=== PATIENT | female | born 1955 | race Caucasian/White ===

== ENCOUNTER 2016-12-22 08:56 | Day surgery (SDC) | payer MEDICAID ==
[~2016-12-22 08:56] MED LIST: CARAFATE1 G/10 ML PO; PEPCID20 MG PO; PROZAC40 MG PO; VENTOLIN HFA18 GM INH
[2016-12-22] MEDS ORDERED: COREG 3.1253.125 MG PO (10:38)
[2016-12-22] MEDS ORDERED: LIPITOR40 MG PO (10:40)
[2016-12-22] MEDS ORDERED: VALIUM5 MG PO (10:40)
[2016-12-22] MEDS ORDERED: ULTRAM50 MG PO (10:40)
[2016-12-22] MEDS ORDERED: BAYER CHEWABLE81 MG PO (10:41)
[2016-12-22] MEDS ORDERED: BRILINTA90 MG PO (10:41)
[2016-12-22 10:59] VITALS: BP 118/74; BMI 27.5
[2016-12-22 11:16] LABS: BASOPHILS 0.1 % (0-2); EOSINOPHILS 1.9 % (0-7); HEMATOCRIT 44.1 % (36.0-48.0); HEMOGLOBIN 14.5 g/dL (12-16); IMMATURE GRANULOCYTES 0.1 % (0-5); LYMPHOCYTES 27.3 % (15-50); MCHC 32.9 g/dL (31.0-37.0); MCV 97.4 fL (80.0-100.0); MEAN PLATELET VOLUME 10.9 fL (7.4-10.4); MONOCYTES 5.8 % (2-11); NEUTROPHILS 64.8 % (40-80); PLATELET COUNT 234 10x3/uL (130-400); RBC 4.53 10x6/uL (4.00-5.40); RDW 13.3 % (11.5-14.5); WBC 6.9 10x3/uL (4.8-10.8)
[2016-12-22 11:33] LABS: CALC OSMOLALITY 280 mosm/kg (275-300); CALCIUM 9.4 mg/dL (8.5-10.1); CARBON DIOXIDE 27.2 mmol/L (21.0-32.0); CHLORIDE - SERUM 106 mmol/L (98-107); CREATININE - SERUM 0.8 mg/dL (0.6-1.3); GLUCOSE 92 mg/dL (74-106); POTASSIUM - SERUM 3.8 mmol/L (3.5-5.1); SODIUM 142 mmol/L (136-145); UREA NITROGEN 8 mg/dL (7-18); eGFR NON AFRICAN AMERICAN 78 mL/min (90-120)
--- NOTE | 2016-12-22 12:51 | NUR ---
[id number] COMPLAINS OF SEVER ABDOMINAL PAIN, ABDOMEN RIGID TO PALPATION. 1233 TO 1246-SCOPE REINTRODUCED BY DR. NIX UNDER TIVA TO CECUM TO DECOMPRESS COLON.
--- NOTE | 2016-12-22 14:25 | NUR ---
1410 DISCHARGE INSTRUCTIONS COMPLETE. PT HAS NO QUESTIONS OR CONCERNS AT THIS TIME. PRESCRIPTION FOR FLAGYL GIVEN. ESCORTED OUT BY JAMES LUZ.
--- NOTE | 2016-12-23 09:09 | OP ---
PATIENT NAME: PORFIRIO LAROSE MEDICAL RECORD: [id number] :57 LOCATION:D[facility] ADMISSION DATE: SURGEON: BOB DIXON DO DATE OF OPERATION: 12/22/2016 PROCEDURE: Colonoscopy with biopsy and polypectomy. INDICATION FOR PROCEDURE: History of colon polyps. Her last colonoscopy was in 2013 and was an inadequate prep. SCOPE: Olympus video pediatric colonoscope. MEDICATIONS: Propofol administered per anesthesia. WITHDRAWAL TIME: 18 minutes. ESTIMATED BLOOD LOSS: Minimal. COMPLICATIONS: None. FINDINGS: Informed consent was given. The patient was made comfortable with the above medications. After reaching an adequate level of sedation by slow IV push, the patient was placed on her left side. A digital rectal examination was performed and was normal. The endoscope was then advanced under direct visualization through the rectum to the terminal ileum. The scope was slowly withdrawn and the mucosa was carefully examined. There were 2 polyps visualized on today's examination. The first was a flat lesion located in the cecum. It measured approximately 9 mm in diameter. For safety reasons, it was lifted with normal saline. An endoscopic mucosal resection was attempted, but the polyp was so flat that the snare could not grasp the edges. For this reason, biopsy forceps were used. Cold forceps biopsies were taken and then the polyp was removed using hot forceps biopsy technique and the site was cauterized. The second polyp was located in the transverse colon. It measured approximately 8 mm in diameter. It was removed using hot forceps in piecemeal fashion. There was evidence of severe diverticulosis involving descending and sigmoid colon. There was no evidence of diverticulitis. Retroflexion was performed in the rectum with a normal-appearing rectal wall. The endoscope was then withdrawn from the patient. The patient tolerated the procedure well and there were no complications. IMPRESSIONS: 1. Two polyps as described above, removed using combination of cold and hot forceps. 2. Severe diverticulosis of descending and sigmoid colon. PLAN AND RECOMMENDATIONS: 1. Discharge home when recovery parameters are met. 2. Followup biopsy specimen results. 3. Recall colonoscopy will be dependent on results of biopsy specimens. I anticipate this being 6 months to 1 year to reevaluate the cecal polyp site. This may change after biopsies are reviewed. 4. High-fiber diet. 5. Continue current medication. OPERATIVE REPORT [id number] PORFIRIO LAROSE TRANSINT:[id number] Voice Confirmation ID: [id number] DOCUMENT ID: [id number] BOB DIXON DO at 0909 CC: [id number] DICTATION DATE: 12/22/16 1219 SENIOR CATEGORY MANAGER: 12/22/16 1253 [facility] 12/22/16 [place] [id number] [place] [id number]
--- NOTE | 2016-12-23 09:09 | OP ---
PATIENT NAME: PORFIRIO LAROSE MEDICAL RECORD: [id number] :57 LOCATION:D[facility] ADMISSION DATE: SURGEON: BOB DIXON DO DATE OF OPERATION: 12/22/2016 ADDENDUM Please note that after the report was dictated, the patient began to express discomfort and pain while waking up from sedation. Her abdomen was palpated and it was somewhat rigid. A decompression was attempted with a digital rectal exam, but was not satisfactory. For this reason, further sedation was provided and the endoscope was placed back through the rectum and advanced all the way to the cecum again for decompression. The previous polypectomy sites were examined and looks normal status post polypectomy. There were no preparations. The bowel retained air well. Decompression was performed as the endoscope was then withdrawn from the patient again. The scope was completely withdrawn from the patient and the abdomen was again palpated and was decompressed satisfactorily. TRANSINT:[id number] Voice Confirmation ID: [id number] DOCUMENT ID: [id number] BOB DIXON DO at 0909 CC: [id number] DICTATION DATE: 12/22/16 1305 FIRE PREVENTION ENGINEER: 12/22/16 1321 [facility] 12/22/16 [place] [id number] [place] [address]
== END 2016-12-22 14:10 | disposition home or self-care (01) ==
LOC: D.OPS 08:56
PROVIDERS: Internal Medicine Gastroenterology
DX: K63.5 Polyp of colon (principal); K57.30 Diverticulosis of large intestine without perforation or abscess without bleeding; J44.9 Chronic obstructive pulmonary disease, unspecified; I25.10 Atherosclerotic heart disease of native coronary artery without angina pectoris; K21.9 Gastro-esophageal reflux disease without esophagitis; Z95.5 Presence of coronary angioplasty implant and graft; Z01.812 Encounter for preprocedural laboratory examination

== ENCOUNTER 2016-12-29 08:38 | Day surgery (SDC) | payer MEDICAID ==
[2016-12-22 10:50] VITALS: BP 118/74; BMI 27.5
[~2016-12-29 08:38] MED LIST changes: +BAYER CHEWABLE81 MG PO; +BRILINTA90 MG PO; +COREG 3.1253.125 MG PO; +LIPITOR40 MG PO; +ULTRAM50 MG PO; +VALIUM5 MG PO
[2016-12-29] MEDS ORDERED: FLAGYL250 MG PO (09:35)
[2016-12-29 09:37] VITALS: BP 108/69; BMI 27.5
[2016-12-29 09:41] LABS: HEMATOCRIT 41.4 % (36.0-48.0); HEMOGLOBIN 13.6 g/dL (12-16); MCH 32.4 pg (26.0-34.0); MCHC 32.9 g/dL (31.0-37.0); MCV 98.6 fL (80.0-100.0); MEAN PLATELET VOLUME 10.7 fL (7.4-10.4); RBC 4.2 10x6/uL (4.00-5.40); RDW 13.2 % (11.5-14.5); WBC 5.3 10x3/uL (4.8-10.8)
--- NOTE | 2016-12-29 12:29 | NUR ---
1125-RECD FROM GI LAB. DR DIXON HERE TO REPORT FINDINGS. 1135-FULL LIQUIDS SERVED. 1155-IV D/C 1205-DISCHARGE INSTRUCTIONS REVIEWED. 1210-UP TO BATHROOM, VOIDED AND DRESSED. 1220-D/C HOME VIA WHEELCHAIR.
--- NOTE | 2017-01-15 07:24 | OP ---
PATIENT NAME: PORFIRIO LAROSE MEDICAL RECORD: [id number] :57 [facility] DATE: SURGEON: BOB DIXON DO DATE OF OPERATION: 12/29/2016 PROCEDURE: EGD with biopsies. INDICATION FOR PROCEDURE: Dysphagia, heartburn, and epigastric abdominal pain. SCOPE: Olympus video gastroscope. MEDICATIONS: Propofol 150 mg IV per anesthesia. ESTIMATED BLOOD LOSS: Minimal. COMPLICATIONS: None. FINDINGS: Informed consent was given. The patient was made comfortable with the above medication. After reaching an adequate level of sedation by slow IV push, the patient was placed on her left side. The endoscope was then advanced under direct visualization through the mouth to the second portion of the duodenum. Just distal to the cricopharyngeus in the proximal third of the esophagus, there were 2 patches of heterotopic gastric mucosa. There were no nodules or abnormalities within these patches. The middle third of the esophagus was normal. In the distal third and GE junction, there was evidence of reflux esophagitis (LA class C). There was also possible Orozco mucosa. Biopsies were taken with cold forceps to submit for histology to rule out Orozco. The endoscope was advanced beyond the GE junction into the stomach and retroflexed to view the cardia, where a small sliding hiatal hernia was present. The mucosa of the stomach appeared normal throughout its entirety. Random biopsies were taken to submit for histology and to rule out H. pylori. There was a single subepithelial lesion in the antrum of the stomach which measured approximately 1 cm in diameter. Multiple tunneled biopsies were taken with cold forceps successfully to try to establish a diagnosis of this nodule. The endoscope was then advanced beyond the pylorus into the duodenum where there was some erythema and granularity consistent with duodenitis. Second portion of the duodenum appeared normal. The endoscope was withdrawn from the patient. The patient tolerated the procedure well and there were no complications. IMPRESSION: 1. 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 2. 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 3. Small sliding hiatal hernia. 4. Antral subepithelial lesion, biopsies pending. 5. Duodenitis. PLAN AND RECOMMENDATIONS: 1. Discharge home when recovery parameters are met. 2. Follow up biopsy specimen results. 3. GERD diet and reflux precautions. 4. Protonix 40 mg daily in the a.m. times 60 days. 5. Okay to discontinue famotidine while taking Protonix. 6. Notify the clinic if symptoms worsen or fail to improve. OPERATIVE REPORT [id number] PORFIRIO LAROSE 7. Follow up in GI clinic in 4-6 weeks. TRANSINT:[id number] Voice Confirmation ID: [id number] DOCUMENT ID: [id number] BOB DIXON DO at 0724 CC: [id number] DICTATION DATE: 12/29/16 1111 SPECIMEN ACCESSIONER: 12/29/16 1233 [facility] 12/29/16 [place] [id number] [place] [address]
== END 2016-12-29 12:20 | disposition home or self-care (01) ==
LOC: D.OPS 08:38
PROVIDERS: Anesthesiology
DX: R13.10 Dysphagia, unspecified (principal); R10.13 Epigastric pain; K21.0 Gastro-esophageal reflux disease with esophagitis; K44.9 Diaphragmatic hernia without obstruction or gangrene; K29.80 Duodenitis without bleeding; Z01.812 Encounter for preprocedural laboratory examination; J44.9 Chronic obstructive pulmonary disease, unspecified; Z87.891 Personal history of nicotine dependence

== ENCOUNTER 2017-08-10 10:52 | Day surgery (SDC) | payer MEDICAID ==
[~2017-08-10] VITALS: Ht 152.4 cm; Wt 68.2 kg
--- NOTE | ~2017-08-10 | OP ---
PATIENT NAME: PORFIRIO LAROSE MEDICAL RECORD: [id number] :57 LOCATION:D.OPS ADMISSION DATE: SURGEON: BOB DIXON DO DATE OF OPERATION: 08/10/2017 PROCEDURE: Colonoscopy with polypectomy. INDICATION FOR PROCEDURE: History of colon polyps and diverticulosis of the colon. SCOPE: [email or web address] video pediatric colonoscope. MEDICATIONS: Propofol 430 mg IV per anesthesia. WITHDRAWAL TIME: 17 minutes. ESTIMATED BLOOD LOSS: Minimal. COMPLICATIONS: None. FINDINGS: Informed consent was given. The patient was made comfortable with the above medication. After reaching an adequate level of sedation by slow IV push, the patient was placed on her left side. A digital rectal examination was performed and was normal. The endoscope was then advanced under direct visualization through the rectum to the cecum with visualization of the appendiceal orifice and the ileocecal valve. The endoscope was slowly withdrawn and the mucosa was carefully examined. The prep quality was good. There were 4 polyps visualized on today's examination. All were benign appearing and sessile and ranged in size from 3-6 mm in diameter. One was located in the transverse colon, two were located in the descending colon, and one was located in the sigmoid colon. All were removed with hot forceps and completely retrieved. There was evidence of moderate diverticulosis involving descending and sigmoid colon. There was no evidence of diverticulitis. Retroflexion was performed in the rectum with a normal-appearing rectal wall. The endoscope was then withdrawn from the patient. The patient tolerated the procedure well and there were no complications. IMPRESSION: 1. Moderate diverticulosis of descending and sigmoid colon. 2. Four polyps as described above, removed using hot forceps. PLAN AND RECOMMENDATIONS: 1. Discharge home when recovery parameters are met. 2. Followup biopsy specimen results. 3. High-fiber diet. 4. Continue current medications. 5. Recall colonoscopy in 3 years for surveillance of personal history of polyps. TRANSINT:[id number] Voice Confirmation ID: [id number] DOCUMENT ID: [id number] OPERATIVE REPORT [id number] PORFIRIO LAROSE BOB DIXON DO at 1212 CC: [id number] DICTATION DATE: 08/10/17 1437 BOTTLE GAUGER: 08/10/17 1846 [facility] 08/10/17 [facility] [address] [place] [address]
[~2017-08-10 10:52] MED LIST changes: +FLAGYL250 MG PO
[2017-08-10 11:25] LABS: BASOPHILS 0.5 % (0-2); EOSINOPHILS 2.9 % (0-7); HEMATOCRIT 43.1 % (36.0-48.0); HEMOGLOBIN 14.7 g/dL (12-16); IMMATURE GRANULOCYTES 0.3 % (0-5); LYMPHOCYTES 35.6 % (15-50); MCH 32.3 pg (26.0-34.0); MCHC 34.1 g/dL (31.0-37.0); MCV 94.7 fL (80.0-100.0); MONOCYTES 6.9 % (2-11); NEUTROPHILS 53.8 % (40-80); RBC 4.55 10x6/uL (4.00-5.40); RDW 12.6 % (11.5-14.5); WBC 5.9 10x3/uL (4.8-10.8)
[2017-08-10 11:29] LABS: PLATELET COUNT 189 10x3/uL (130-400)
[2017-08-10 11:38] LABS: CALC OSMOLALITY 276 mosm/kg (275-300); CALCIUM 9.1 mg/dL (8.5-10.1); CARBON DIOXIDE 20.5 mmol/L (21.0-32.0); CHLORIDE - SERUM 105 mmol/L (98-107); CREATININE - SERUM 0.8 mg/dL (0.6-1.3); GLUCOSE 102 mg/dL (74-106); POTASSIUM - SERUM 4.3 mmol/L (3.5-5.1); SODIUM 140 mmol/L (136-145); UREA NITROGEN 8 mg/dL (7-18); eGFR NON AFRICAN AMERICAN 77 mL/min (90-120)
[2017-08-10] MEDS ORDERED: NEURONTIN 300300 MG PO (13:19)
[2017-08-10] MEDS ORDERED: SPIRIVA18 MCG INH (13:19)
[2017-08-10 13:25] VITALS: Ht 152.4 cm; Wt 68.2 kg
== END 2017-08-10 17:13 | disposition home or self-care (01) ==
LOC: D.OPS 10:52
PROVIDERS: Anesthesiology
DX: D12.4 Benign neoplasm of descending colon (principal); D12.3 Benign neoplasm of transverse colon; K63.5 Polyp of colon; K57.30 Diverticulosis of large intestine without perforation or abscess without bleeding; Z86.010 Personal history of colon polyps; Z01.812 Encounter for preprocedural laboratory examination

== ENCOUNTER 2018-07-07 09:00 | Day surgery (SDC) | payer MEDICAID ==
[~2018-07-07] VITALS: Ht 152.4 cm; Wt 67.1 kg
[~2018-07-07 09:00] MED LIST changes: +NEURONTIN 300300 MG PO; +SPIRIVA18 MCG INH
[2018-07-07 09:18] LABS: BASOPHILS 0.4 % (0-2); EOSINOPHILS 4.1 % (0-7); HEMATOCRIT 44.5 % (36.0-48.0); HEMOGLOBIN 14.6 g/dL (12-16); IMMATURE GRANULOCYTES 0.2 % (0-5); LYMPHOCYTES 33.7 % (15-50); MCH 31.9 pg (26.0-34.0); MCHC 32.8 g/dL (31.0-37.0); MCV 97.2 fL (80.0-100.0); MEAN PLATELET VOLUME 10.3 fL (7.4-10.4); MONOCYTES 6.2 % (2-11); NEUTROPHILS 55.4 % (40-80); PLATELET COUNT 206 10x3/uL (130-400); RBC 4.58 10x6/uL (4.00-5.40); RDW 13.9 % (11.5-14.5); WBC 5.6 10x3/uL (4.8-10.8)
[2018-07-07 09:36] LABS: CALC OSMOLALITY 280 mosm/kg (275-300); CARBON DIOXIDE 25.4 mmol/L (21.0-32.0); CHLORIDE - SERUM 107 mmol/L (98-107); CREATININE - SERUM 0.8 mg/dL (0.6-1.3); GLUCOSE 90 mg/dL (74-106); POTASSIUM - SERUM 3.9 mmol/L (3.5-5.1); SODIUM 142 mmol/L (136-145); UREA NITROGEN 7 mg/dL (7-18); eGFR NON AFRICAN AMERICAN 77 mL/min (90-120)
[2018-07-07 09:58] VITALS: BP 176/80; Ht 152.4 cm; Wt 67.1 kg
--- NOTE | 2018-07-09 16:05 | OP ---
PATIENT NAME: PORFIRIO LAROSE MEDICAL RECORD: [id number] :57 LOCATION:[facility] ADMISSION DATE: SURGEON: BOB DIXON DO DATE OF OPERATION: 07/07/2018 PROCEDURE: EGD with biopsies. INDICATIONS FOR PROCEDURE: Dysphagia, heartburn, epigastric pain. SCOPE: Olympus video gastroscope. MEDICATIONS: Propofol 100 mg IV per anesthesia. ESTIMATED BLOOD LOSS: Minimal. COMPLICATIONS: None. FINDINGS: Informed consent was given. The patient was made comfortable with the above medication. After reaching an adequate level of sedation by slow IV push, the patient was placed on her left side. The endoscope was advanced under direct visualization through the mouth to the second portion of the duodenum. Just distal to the cricopharyngeus and the proximal third of the esophagus, there were 2 patches of heterotopic gastric mucosa, which encompassed approximately 80% of the luminal diameter of the esophagus at this level. There were no nodules, ulcers, strictures, or abnormalities within these patches. The middle and distal thirds of the esophagus appeared normal. Random cold forceps biopsies were taken from the midesophagus to rule out the presence of eosinophilic esophagitis. At the GE junction, there was evidence of LA class C reflux-induced esophagitis. Cold forceps biopsies were taken from this site to submit for histopathology and to rule out the presence of Orozco esophagus. The endoscope was advanced beyond the GE junction into stomach and retroflexed to view the cardia, where a very small sliding hiatal hernia was present. The fundus of the stomach appeared normal. As the endoscope was advanced beyond the body and the antrum of the stomach, there was some erythema and granularity consistent with possible gastritis. Random cold forceps biopsies were taken to submit for histopathology and to rule out the presence of H. pylori. In the antrum, there was a single subepithelial lesion, which measured approximately 1.2 cm in size. Tunnel biopsies were taken with cold forceps to try to establish a diagnosis with this nodule. The endoscope was advanced beyond the pylorus into the duodenum, which appeared normal down to the second portion. The endoscope was then withdrawn from the patient. The patient tolerated the procedure well, and there were no complications. IMPRESSION: 1. 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 2. LA class C reflux-induced esophagitis and possible Orozco esophagus at the GE junction. Biopsies pending. 3. Diminutive sliding hiatal hernia. 4. Antral subepithelial lesion. Biopsies pending. 5. Gastritis. Biopsies pending. PLAN AND RECOMMENDATIONS: 1. Discharge home when recovery parameters are met. 2. Follow up biopsy specimen results. OPERATIVE REPORT [id number] LAROSEPORFIRIO 3. GERD diet and reflux precautions. 4. We will provide the patient with another prescription for PPI consisting of omeprazole 40 mg daily times 60 days. 5. Okay to discontinue famotidine while using omeprazole. 6. Follow up in clinic in 1 month. If symptoms of regurgitation and bloating continues, consider a gastric emptying scan to rule out gastroparesis. 7. We will make a referral to [facility] for evaluation of the antral subepithelial lesion and possible EUS and/or EMR. TRANSINT:[id number] Voice Confirmation ID: [id number] DOCUMENT ID: [id number] BOB DIXON DO at 1605 CC: [id number] DICTATION DATE: 07/07/18 1225 BILINGUAL STUDENT TUTOR: 07/07/18 1341 [facility] 07/07/18 [facility] [address] [place] [address]
== END 2018-07-07 13:30 | disposition home or self-care (01) ==
LOC: D.OPS 09:00
PROVIDERS: Anesthesiology; ATTEND Internal Medicine Gastroenterology
DX: K21.0 Gastro-esophageal reflux disease with esophagitis (principal); K44.9 Diaphragmatic hernia without obstruction or gangrene; K29.70 Gastritis, unspecified, without bleeding; Z01.812 Encounter for preprocedural laboratory examination